=== PATIENT | male | born 1995 | race Caucasian/White ===

== ENCOUNTER 2024-01-19 10:18 | Outpatient (AMB) | payer OTHER, SELFPAY ==
--- NOTE | 2024-01-19 10:22 | A.OFFVIS_ITS ---
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 Patient reports when he was trying to lift a desk he felt a popping sensation and instant pain in his bicep. Patient states that he not had any pain since he took Ibuprofen when the injury happened. Patient also stated that he didn't have any xrays done. 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 The patient was seen by Dr. Brannon Law at [facility] on 01/11/24 for left upper extremity injury status post lifting a desk, which occurred on 01/07/24. The patient reported sudden onset of pain in his left upper extremity and popping sensation with subsequent bruising and change in muscle contour. While in the office today, the patient confirms left bicep injury status post when attempting to lift a desk into the back of someone?s vehicle and felt a popping sensation with immediate pain. He denies currently having any pain; however, he has noticed a deformity in his left bicep. He has not had any x-rays since injury. The patient has a past medical history of epilepsy. The patient has a social history of occasional consumption of marijuana and moderate alcohol consumption. He is a former smokeless tobacco user, quit 8 years ago. The patient has a social history of working at [employer]. Review of Systems Const All systems reviewed & are unremarkable except as noted in HPI and below Physical Exam Const General: cooperative and no acute distress Orientation/consciousness: patient oriented x3 Resp Effort & Inspection: normal respiratory effort and able to speak in complete sentences Cardio Peripheral pulses: Peripheral pulses 2+ throughout Skin General skin exam: no rashes or lesions noted Neuro General: patient oriented x3 Extrem Other: Left upper extremity: Resolving ecchymosis in the mid forearm on the dorsal aspect of the forearm. Nonpalpable distal bicep tendon attachment. He has deven deformity and weakness with resisted pronation and supination. Full range of motion. NVI. Assessment & Plan Assessment & Plan (1) Rupture of left distal biceps tendon: Code(s): S46.212A - Strain of muscle, fascia and tendon of other parts of biceps, left arm, initial encounter Category: Medical Plan Mr. Allison is a 28-year-old right hand dominant male who presents in the office today, as a new patient, for an evaluation of left distal bicep tendon rupture. The patient was seen by Dr. Brannon Law at [facility] on 01/11/24 for left upper extremity injury status post lifting a desk, which occurred on 01/07/24. The patient reported sudden onset of pain in his left upper extremity and popping sensation with subsequent bruising and change in muscle contour. While in the office today, the patient confirms left bicep injury status post when attempting to lift a desk into the back of someone?s vehicle and felt a popping sensation with immediate pain. He denies currently having any pain; however he has noticed a deformity in his left bicep. He has not had any x-rays since injury. 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 Dr. Hernández was available to speak with me and was able to see the patient today; and a collaborative treatment plan was made. The patient would like to proceed with surgical intervention for a distal bicep tendon repair. I discussed in detail the procedure and what to expect pre and post operatively. We discussed the risks, benefits and alternatives to the surgery and the rehabilitation course. The risks include infection, bleeding, nerve injury, ongoing pain, swelling, and stiffness, perioperative risk of injury to bones and soft tissues, and blood clots. I have answered all questions and with their understanding they have consented to move forward with a left distal bicep tendon repair to be performed on 01/20/[address] Hernández. Patient Instructions: Scribed by Karly Clark medical staffing coordinator, for Sandie Walter PA-C on 01/19/24 at 10:49 am EST. Coding Level of Care Code New Pt Level 4 (83626) Diagnoses Rupture of left distal biceps tendon S46.212A
== END 2024-01-19 11:02 | disposition home or self-care (01) ==
PROVIDERS: Visit Provider Physician Assistant
DX: S46.212A Strain of muscle, fascia and tendon of other parts of biceps, left arm, initial encounter (principal)
CPT/HCPCS: 99204

== ENCOUNTER → 2024-01-19 10:18 | Outpatient (BNVA) | payer OTHER, SELFPAY | PROVIDERS: Visit Provider Physician Assistant ==

== ENCOUNTER 2024-01-20 12:39 | Day surgery (SDC) | payer OTHER, SELFPAY ==
[2024-01-20 13:00] VITALS: BMI 28.2
[2024-01-20] MEDS: Lactated Ringers 1,000 ML 50 ML IVCONT (13:12)
[2024-01-20 13:21] VITALS: BP 149/85; PULSE 66; RESP 18; TEMP 36.6; O2SAT 98
--- NOTE | 2024-01-20 13:22 | MHC.SHP ---
Pre-Procedural Eval Section A - 24 Hr Update-Section A only Date of Service: 01/20/24 The patient is an INPATIENT: No Changes since office visit: No Cold of Flu in the past 2 weeks, No New Medical Problems, No Changes in Medication and No Patient answered all questions The patient has been examined within 24 hours of the surgical procedure. The History & Physical has been completed within 30 days and I have reviewed it.: Yes Section B - Complete if H&P > 30 days Chief Complaint: Strain of muscle, fascia and tendon of other parts Allergies: Allergies Allergy/AdvReac Type Severity Reaction Status Date / Time No Known Allergies Allergy Verified 01/20/24 13:11 Plan I have reviewed the history and physical and performed a pertinent physical examination on my patient. No changes have occurred unless specified. Time Spent With Patient Time: Total time managing care of this patient today ____ minutes.
--- NOTE | 2024-01-20 14:05 | HO.ANESPROP2 ---
HPI - Anesthesia Eval Consult details Narrative: 28 yo M presenting for left biceps tendon repair. Hx of seizures - last seizure 7 years ago. PMFSH Active Problems Active Problems: All Active Problems Rupture of left distal biceps tendon (Acute) Past Medical History Medical History (Updated 01/20/24 @ 13:10 by Georgette Melgar RN) Epilepsy Family History Family history of problems with anesthesia: No Surgical History Surgical History (Updated 01/20/24 @ 13:10 by Georgette Melgar RN) [place] teeth extracted History of Problems with Anesthesia: No Social History Social History Are you a primary assisted living care manager to a significant other at home: No Do you presently have visiting nurse or other home services: No Patient Tobacco Use Status: Former Tobacco user Have you been hit, kicked, punched, or otherwise hurt by someone within the past year? If so, by whom?: No Are you DNR?: No Advance Directives: No Advance Directives Information Provided: Yes Recently lost weight without trying: No Nutrition Risks: No Nutritional Risk Meds Allergies Allergy/AdvReac Type Severity Reaction Status Date / Time No Known Allergies Allergy Verified 01/20/24 13:11 Active Medications: Current Medications Lactated Ringer's (Lr) 1,000 mls @ 50 mls/hr IVCONT .Q20H MARLENY Last Admin: 01/20/24 13:12 Dose: 50 mls/hr Home Medications ?Medication ?Instructions ?Recorded ?Confirmed ?Last Taken ?Type levetiracetam 750 mg tablet 750 mg PO BID 01/20/24 01/20/24 01/20/24 History Exam Exam Date and Time: 01/20/24 1400 Height,Weight and Vital Signs: Height 6 ft 2 in Weight 99.79 kg Last Vital Signs Temp 97.9 F 01/20/24 13:21 Pulse 66 01/20/24 13:21 Resp 18 01/20/24 13:21 BP 149/85 H 01/20/24 13:21 Pulse Ox 98 01/20/24 13:21 O2 Del Method Room Air 01/20/24 13:21 Airway Mallampati Class: I TM Dist: >3cm Neck ROM: Full Loose/Missing/Broken Teeth: No (patient denies any loose or broken teeth) Heart: S1S2 Lungs: CTAB Assessment and Plan Assessment Anesthesia Assessment: Anesthesia Plan Discussed and Chart Reviewed Final Anesthetic Review Family History of Problems with Anesthesia: No History of Problems with Anesthesia: No NPO: Yes ASA Class: II Final Preanesthetic Review: No Changes in Pt Med Stat, Meds/Allgs Chart Reviewed, Consent Obtained/Reviewed and Anes Risks/Benef Reviewed Patient Risk: Low Procedure Risk: Low Anesthetic Plan Anesthetic Plan: GA, Regional Block (left brachial plexus block) and Agree w/ Assess. and Plan Disposition: Standard PACU
--- NOTE | 2024-01-20 14:21 | PC.NURSE ---
report given to marvel pozo rn at this time.
--- NOTE | 2024-01-20 16:41 | PM.OP ---
Brief Operative Note Date of Service: 01/20/24 Pre-op diagnosis: Left distal biceps rupture Post-op diagnosis: same Procedure: Left distal biceps repair Implants: Arthrex endobutton Surgeon: Juan Hernández MD Anesthesia: GLMA and regional Was an Retail Wireless Sales Representative used for this Procedure?: Yes Retail Wireless Sales Representative: Sandie Walter Estimated blood loss (mL): 20 Tourniquet time (min): 48 IV fluids (mL): 500 Pathology: none sent Condition: stable Disposition: PACU
[2024-01-20 16:45] VITALS: BP 120/52; PULSE 55; RESP 20; TEMP 36.4; O2SAT 98
[2024-01-20 16:50] VITALS: BP 107/54; PULSE 56; RESP 20; O2SAT 98
[2024-01-20 16:55] VITALS: BP 114/53; PULSE 56; RESP 20; O2SAT 98
[2024-01-20 17:00] VITALS: BP 121/64; PULSE 70; RESP 20; O2SAT 98
[2024-01-20 17:15] VITALS: BP 123/75; PULSE 65; RESP 20; TEMP 36.4; O2SAT 96
--- NOTE | 2024-02-03 09:24 | P.OP_ITS ---
Operative Note Operative Note Date of Service: 01/20/24 Narrative: Date of Service: 01/20/24 Pre-op diagnosis: Left distal biceps rupture Post-op diagnosis: same Procedure: Left distal biceps repair Implants: Arthrex endobutton Surgeon: Juan Hernández MD Anesthesia: GLMA and regional Was an Strain Technician used for this Procedure?: Yes Strain Technician: Sandie Walter Estimated blood loss (mL): 20 Tourniquet time (min): 48 IV fluids (mL): 500 Pathology: none sent Condition: stable Disposition: PACU Patient was brought to the operating room and placed supine on the surgical table. He was prepped and draped in standard sterile fashion and a time out was called to identify proper site, proper procedure and IV antibiotics per weight were administered. I began by locating the proximal aspect of the radius with fluoroscopy. A transverse incision was made proximally 2 fingerbreadths distal to the antecubital fossa. Dissection was taken down to the biceps sheath and the distal biceps was quickly and easily encountered. It had retracted a minimal amount with adhesive fibers maintaining it within the surgical field. It was a completely torn biceps however. I cleaned up the torn ends and whip stitched it with a FiberWire suture that was included in the Arthrex distal biceps tenodesis set. Once this was securely with stitched it fit through a 6.5 mm aperture. I dissected down to the radial tuberosity. I then drilled a bicortical pin here and over-reamed the proximal cortex with a 7 mm Reamer. I then attached the distal biceps endo-button in place this into the far cortex and flipped the button. I then brought the attached biceps into the radial attachment completely dunking it in through the proximal cortex. I then tied this button down and took the elbow through a full range of motion. He had full supination extension and flexion and the biceps remained dunked into the radial insertion. Once I was satisfied with this the tourniquet was let down. There was no brisk bleeding. A layered closure was performed with absorbable suture in skin glue. Patient was then placed in sterile dressing extubated and brought to recovery room in stable condition. There were no known complications.
== END 2024-01-20 17:27 | disposition home or self-care (01) ==
LOC: HO.SSS 12:39
PROVIDERS: PCP Family Medicine; Visit Provider Orthopaedic Surgery
PROC: (CPT 24341; principal; 2024-01-20 15:10)
DX: S46.212A Strain of muscle, fascia and tendon of other parts of biceps, left arm, initial encounter (principal); X50.0XXA Overexertion from strenuous movement or load, initial encounter; Y93.89 Activity, other specified; Y92.9 Unspecified place or not applicable; Y99.9 Unspecified external cause status; G40.909 Epilepsy, unspecified, not intractable, without status epilepticus; Z87.891 Personal history of nicotine dependence
CPT/HCPCS: 24342; C1713; J0131; J0690; J1100; J1885; J2003; J2250; J2405; J2704; J2795

== ENCOUNTER → 2024-01-20 12:39 | Outpatient (BNV) | payer OTHER, SELFPAY | PROVIDERS: PCP Family Medicine; Visit Provider Orthopaedic Surgery | DX: S46.212A Strain of muscle, fascia and tendon of other parts of biceps, left arm, initial encounter (principal) | CPT/HCPCS: 24342 ==

== ENCOUNTER 2024-02-02 09:07 | Outpatient (AMB) | payer OTHER, SELFPAY ==
--- NOTE | 2024-02-02 09:11 | MHC.OFFVIS ---
Intake Visit Reasons: PO LT bicep tendon repair 01/20/24 NE Intake Note: Taras is a 28 year old right hand dominant male who presents today for a post op appointment s/p LT bicep tendon repair 01/20/24 NE. Patient reports he is doing well. Allergies No Known Allergies Allergy (Verified 02/02/24 09:20) HPI HPI PO LT bicep tendon repair 01/20/24 NE: Details: 28-year-old right hand dominant male who presents in the office today 13 days status post left distal bicep repair which was performed on 01/20/[address] Hernández. While in the office today, the patient reports he is doing well post surgery. Pain is well controlled. Using the sling. [facility] Medical History (Updated 01/20/24 @ 13:10 by Georgette Melgar RN) Epilepsy Surgical History (Updated 01/20/24 @ 13:10 by Georgette Melagr RN) [place] teeth extracted Social History Are you a primary director day care center to a significant other at home: No Do you presently have visiting nurse or other home services: No Patient Tobacco Use Status: Former Tobacco user Review of Systems Const All systems reviewed & are unremarkable except as noted in HPI and below Physical Exam Const General: cooperative, healthy appearing and no acute distress Resp Effort & Inspection: normal respiratory effort and able to speak in complete sentences Cardio Rate: regular rate Peripheral pulses: Peripheral pulses 2+ throughout GI Palpation (GI): Soft to palpation Skin Lesions: no lesions Rashes: no rashes Extrem Other: Left distal bicep incision site is clean, dry, and intact. Sutures are intact. No surrounding erythema or drainage. No signs of infection. We did not conduct ROM test to avoid stressing the repair. However, he is able to extend comfortably while lacking about 30 degrees. NVI. Assessment & Plan Assessment & Plan (1) Rupture of left distal biceps tendon: Code(s): S46.212A - Strain of muscle, fascia and tendon of other parts of biceps, left arm, initial encounter Category: Medical Plan Mr. Allison is a 28-year-old right hand dominant male who presents in the office today 13 days status post left distal bicep repair which was performed on 01/20/[address] Hernández. While in the office today, the patient reports he is doing well post surgery. Pain is well controlled. Using the sling. Dr. Hernández was available to speak with me and see the patient today; and a collaborative treatment plan was made. The patient was referred to physical therapy. He will avoid any resistance at this time. 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 He may return to work next week with work restrictions including no lifting, pushing, or pulling with his left upper extremity. Follow-up will be in [address] Hernández, or sooner if needed. Orders: Orders PT Evaluation and Treatment Today S46.212A - Strain of muscle, fascia and tendon of other parts of biceps, left arm, initial encounter Patient Instructions: Scribed by Karly Clark medical billing service, for Sandie Walter PA-C on 02/02/24 at 9:26 am EST. Coding Level of Care Code Global (69656) Diagnoses Rupture of left distal biceps tendon S46.212A
== END 2024-02-02 09:39 | disposition home or self-care (01) ==
PROVIDERS: Visit Provider Physician Assistant
DX: S46.212A Strain of muscle, fascia and tendon of other parts of biceps, left arm, initial encounter (principal)
CPT/HCPCS: 99024

== ENCOUNTER → 2024-02-02 09:07 | Outpatient (BNVA) | payer OTHER, SELFPAY | PROVIDERS: Visit Provider Physician Assistant ==

== ENCOUNTER 2024-03-15 13:48 | Outpatient (AMB) | payer OTHER, SELFPAY ==
--- NOTE | 2024-03-15 14:39 | MHC.OFFVIS ---
Intake Visit Reasons: PO LT bicep tendon repair 01/20/24 NE Intake Note: Taras is a 28 year old right hand dominant male who presents today for a post op appointment s/p LT bicep tendon repair 01/20/24. He has returned to work on light duty with no lifting, pushing or pulling with his left arm. States he is doing very well. Today he would like to discuss if he can start on strengthen exercises. Allergies No Known Allergies Allergy (Verified 03/15/24 14:42) HPI HPI PO LT bicep tendon repair 01/20/24 NE: Details: Taras is a 28 year old right hand dominant male who presents today for a post op appointment s/p LT bicep tendon repair 01/20/24. He has returned to work on light duty with no lifting, pushing or pulling with his left arm. States he is doing very well. Today he would like to discuss if he can start on strengthen exercises. PFSH Medical History (Updated 03/13/24 @ 11:11 by Brit Mendoza CMA) Epilepsy Surgical History (Updated 03/13/24 @ 11:11 by Brit Mendoza CMA) Status post tendon repair (01/20/24) [place] teeth extracted Social History Are you a primary residential child care counselor to a significant other at home: No Do you presently have visiting nurse or other home services: No Patient Tobacco Use Status: Former Tobacco user Physical Exam Extrem Other: Well-healed incision Full range of motion left elbow No pain with resisted supination Assessment & Plan Assessment & Plan (1) Rupture of left distal biceps tendon: Code(s): S46.212A - Strain of muscle, fascia and tendon of other parts of biceps, left arm, initial encounter Category: Medical Plan: Doing well status post left biceps tendon repair. May begin light strengthening. Turned to work light duty but no lifting over 5 lb. Follow up 6 weeks. Coding Level of Care Code Global (95131) Diagnoses Rupture of left distal biceps tendon S46.212A
== END 2024-03-15 14:54 | disposition home or self-care (01) ==
PROVIDERS: PCP Family Medicine; Visit Provider Orthopaedic Surgery
DX: S46.212A Strain of muscle, fascia and tendon of other parts of biceps, left arm, initial encounter (principal)
CPT/HCPCS: 99024

== ENCOUNTER → 2024-03-15 13:48 | Outpatient (BNVA) | payer OTHER, SELFPAY | PROVIDERS: PCP Family Medicine; Visit Provider Orthopaedic Surgery ==

== ENCOUNTER → 2024-05-17 12:57 | Outpatient (AMB) | payer OTHER, SELFPAY ==
--- NOTE | 2024-05-17 13:27 | A.OFFVIS_ITS ---
Intake Visit Reasons: OV- LT bicep tendon repair 01/20/24 NE Intake Note: Taras is a 28 year old right hand dominant male who presents today for a post op appointment s/p LT bicep tendon repair 01/20/24. At his last visit he was given a note to return to work on light duty with no lifting over 5lbs. Patient rpeorts that he is doing very well. He explains that he has some atrophy in the left lower bicep. Allergies No Known Allergies Allergy (Verified 03/15/24 14:42) HPI HPI OV- LT bicep tendon repair 01/20/24 NE: Details: Taras is 4 months status post left biceps tendon repair. He is doing well. He has no complaints. He has returned to work but with restrictions. [facility] Medical History (Updated 03/13/24 @ 11:11 by Brit Mendoza CMA) Epilepsy Surgical History (Updated 03/13/24 @ 11:11 by Brit Mendoza CMA) Status post tendon repair (01/20/24) [place] teeth extracted Social History Are you a primary care provider to a significant other at home: No Do you presently have visiting nurse or other home services: No Patient Tobacco Use Status: Former Tobacco user Physical Exam Extrem Other: I incision clean dry and intact. Full range of motion left elbow. Distal biceps tendon intact and weak compared to contralateral side but activated with resisted supination without pain. Assessment & Plan Assessment & Plan (1) Rupture of left distal biceps tendon: Code(s): S46.212A - Strain of muscle, fascia and tendon of other parts of biceps, left arm, initial encounter Category: Medical Plan: Doing well. May return to work without restriction. Coding Level of Care Code Est Pt Level 3 (22121) Diagnoses Rupture of left distal biceps tendon S46.212A
== END | disposition home or self-care (01) ==
PROVIDERS: PCP Family Medicine; Visit Provider Orthopaedic Surgery
CPT/HCPCS: 99213